=== PATIENT | male | born 1950 | race Caucasian/White ===

== ENCOUNTER 2024-01-18 08:01 | Day surgery (SDC) | payer OTHER, SELFPAY ==
[2024-01-16 14:19] VITALS: BMI 28.1
[2024-01-18 08:30] VITALS: BMI 26.7
[2024-01-18 08:36] VITALS: BP 113/71; PULSE 51; RESP 15; TEMP 36.7; O2SAT 95
--- NOTE | 2024-01-18 08:44 | HO.ANESPROP2 ---
[facility] Past Medical History Medical History (Updated 01/18/24 @ 08:45 by Natasha Colmenares RN) HTN (hypertension) Elevated cholesterol Dilated cardiomyopathy AAA (abdominal aortic aneurysm) Myocardial infarction CAD (coronary artery disease) Family History Family history of problems with anesthesia: No Surgical History Surgical History (Updated 01/16/24 @ 14:15 by Tonia Kelley RN) Hx of appendectomy Hx of CABG H/O colonoscopy History of Problems with Anesthesia: No Social History Social History (Updated 01/16/24 @ 14:15 by Tonia Kelley RN) Patient Tobacco Use Status: Former Tobacco user Use of substances other than those prescribed or required for medical reasons: No Are you DNR?: No Advance Directives: No Advance Directives Information Provided: Yes Meds Allergies Allergy/AdvReac Type Severity Reaction Status Date / Time No Known Allergies Allergy Verified 01/18/24 08:27 Home Medications ?Medication ?Instructions ?Recorded ?Confirmed ?Last Taken ?Type calcium carbonate (Calcium 600) 600 mg PO DAILY 01/16/24 01/18/24 Unknown History lisinopril 5 mg tablet 5 mg PO DAILY 01/16/24 01/18/24 01/18/24 05:30 History nitroglycerin 0.4 mg sublingual 0.4 mg sublingual Q5M PRN Chest 01/16/24 01/18/24 Unknown History tablet (Nitrostat) Pain rosuvastatin 40 mg tablet 40 mg PO DAILY 01/16/24 01/18/24 Unknown History aspirin 81 mg tablet 81 mg PO DAILY 01/18/24 01/18/24 01/12/24 History cyanocobalamin (vitamin B-12) 3,000 mcg PO DAILY 01/18/24 01/18/24 Unknown History 1,000 mcg tablet (Vitamin B-12) Exam Height,Weight and Vital Signs: Height 5 ft 9 in Weight 82.01 kg Last Vital Signs Temp 98.0 F 01/18/24 08:36 Pulse 51 01/18/24 08:36 Resp 15 01/18/24 08:36 BP 113/71 01/18/24 08:36 Pulse Ox 95 01/18/24 08:36 O2 Del Method Room Air 01/18/24 08:36 Airway Mallampati Class: II TM Dist: >3cm Neck ROM: Full Partial: Lower Loose/Missing/Broken Teeth: No Heart: rrr Lungs: cta Assessment and Plan Assessment Anesthesia Assessment: Anesthesia Plan Discussed and Chart Reviewed Final Anesthetic Review Family History of Problems with Anesthesia: No History of Problems with Anesthesia: No NPO: Yes ASA Class: II and III Final Preanesthetic Review: No Changes in Pt Med Stat, Meds/Allgs Chart Reviewed, Consent Obtained/Reviewed and Anes Risks/Benef Reviewed Patient Risk: Intermediate Procedure Risk: Intermediate Anesthetic Plan Anesthetic Plan: MAC: Disposition: Standard PACU
[2024-01-18] MEDS: Lactated Ringers 1,000 ML 50 ML IVCONT (08:54)
--- NOTE | 2024-01-18 09:31 | P.HPSUR_ITS ---
Pre-Procedural Eval Section A - 24 Hr Update-Section A only Date of Service: 01/18/24 Section B - Complete if H&P > 30 days Chief Complaint: Encounter for screening for malignant neoplasm of Details of Present Illness: see H&P no changes Relevant Family History (Specify if Yes): No Relevant Social History: None Present Medications: see Short Stay Collaborative assessment Medical History: No relevant PMH History of Previous Operations: No relevant previous surgery Allergies: Allergies Allergy/AdvReac Type Severity Reaction Status Date / Time No Known Allergies Allergy Verified 01/18/24 08:27 Review of Systems Sugical H&P ROS: Negative: Constitution, Cardiovascular, Respiratory, Neurological, Psychiatric, Hem-Onc, Allergic/Immunologic, Gastrointestinal, Genitourinary, Musculoskeletal, Integumentary, Endocrine and Eyes/Ears/No se/Throat Exam Surgical H&P Exam: Normal: HEENT, Normal: Heart, Normal: Lungs, Normal: Extremities, Normal: Abdomen, Normal: Skin and Normal: Neurological Plan Diagnosis/Plan: Unchanged I have reviewed the history and physical and performed a pertinent physical examination on my patient. No changes have occurred unless specified. Time Spent With Patient Time: Total time managing care of this patient today ____ minutes.
[2024-01-18 10:25] VITALS: BP 120/55; PULSE 57; RESP 16; TEMP 36.4; O2SAT 96
[2024-01-18 10:40] VITALS: BP 108/60; PULSE 57; RESP 16; TEMP 36.4; O2SAT 96
--- NOTE | 2024-01-18 10:42 | OP_ITS ---
DATE OF SERVICE: 01/18/2024 SURGEON: Wenceslao Weber MD INDICATIONS: Colon cancer screening and prior history of colon polyps. PREOPERATIVE DIAGNOSIS: POSTOPERATIVE DIAGNOSIS: PROCEDURE PERFORMED: Colonoscopy to the terminal ileum with biopsy and snare polypectomy. ESTIMATED BLOOD LOSS: COMPLICATIONS: ANESTHESIA: Monitored anesthesia care. ASSISTANTS: SPECIMENS: DESCRIPTION OF PROCEDURE: A history and physical was performed. The risks and benefits of the procedure were explained to the patient and informed consent was obtained. The patient was placed in the left lateral decubitus position. A digital rectal exam was performed and was found to be normal. The Olympus pediatric video colonoscope was introduced into the rectum and advanced to the cecum. The cecum was identified by transillumination, palpation, and identification of the ileocecal valve. Examination was performed and the scope was removed. He tolerated the procedure well and was returned to recovery area in stable condition. FINDINGS: The terminal ileum was examined and appeared normal. The visualized colonic mucosa was normal. The quality of the prep was good. Two polyps were removed using a biopsy forceps. These were located at 60 and 40 cm. In the rectum, was an 8 mm polyp, which was removed with a hot snare and recovered via suction. Retroflexed examination showed small internal hemorrhoids. IMPRESSION: Colon polyps. RECOMMENDATION: Follow up the biopsy results. MD RADHA Story/MARTA / [id number]
== END 2024-01-18 11:01 | disposition home or self-care (01) ==
PROVIDERS: PCP Physician Assistant Medical; Visit Provider Internal Medicine Gastroenterology
PROC: 0DJD8ZZ Inspection of Lower Intestinal Tract, Via Natural or Artificial Opening Endoscopic (ICD-10-PCS; CPT 45378; principal; 2024-01-18 10:00)
DX: Z12.11 Encounter for screening for malignant neoplasm of colon (principal); D12.4 Benign neoplasm of descending colon; D12.5 Benign neoplasm of sigmoid colon; D12.8 Benign neoplasm of rectum; K64.8 Other hemorrhoids; E78.00 Pure hypercholesterolemia, unspecified; I25.2 Old myocardial infarction; Z95.1 Presence of aortocoronary bypass graft; Z86.010 Personal history of colon polyps; Z79.82 Long term (current) use of aspirin; Z87.891 Personal history of nicotine dependence
CPT/HCPCS: 45385; 45380; 88305; J2704